=== PATIENT | female | born 1955 ===

== ENCOUNTER 2021-11-25 06:04 | Observation (INO) ==
[~2021-11-25 06:04] MED LIST: Buffered Lidocaine 1% SYRIN 1 ml INTRADERM ONE; Famotidine IV 10 MG/ML 2 ml VIAL (20 mg) IV ONE; Lactated Ringers 1000 ml BAG 1,000 ML IV SCH
[2021-11-25] MEDS ORDERED: Famotidine IV 10 MG/ML 2 ml VIAL (20 mg) ONE (06:22)
[2021-11-25] MEDS ORDERED: Lidocaine 1% w EPI 1:100,000 MDV 20 ML VIAL ONE (06:45)
[2021-11-25] MEDS ORDERED: fentaNYL 100 mcg/2 ml 50 MCG/ML VIAL ONE ×3 (07:21→11:10)
[2021-11-25] MEDS ORDERED: Midazolam 2 mg/2 ml VIAL 1 mg/ml 2 ml VIAL (2 mg) ONE ×2 (07:21→08:02)
[2021-11-25] MEDS ORDERED: Succinylcholine 200 mg VIAL 20 mg/ml 10 ml VIAL (200 mg) ONE (07:21)
[2021-11-25] MEDS ORDERED: Propofol 10 MG/ML 20 ML BTL ONE (07:21)
[2021-11-25] MEDS ORDERED: Rocuronium 50 mg VIAL 10 mg/ml 5 ml VIAL (50 mg) ONE (07:21)
[2021-11-25] MEDS ORDERED: Dexamethasone IV 4 MG/ML VIAL 1 ml VIAL ONE (07:21)
[2021-11-25] MEDS ORDERED: Lidocaine 2% PF 5 ML VIAL ONE (07:21)
[2021-11-25] MEDS ORDERED: Phenylephrine 40 mcg/mL 10mL (400mcg) SYRINGE ONE (08:17)
[2021-11-25] MEDS ORDERED: Naloxone 0.4 mg VIAL 0.4 mg/ml 1 ml VIAL IV PRN (08:50)
[2021-11-25] MEDS ORDERED: fentaNYL 100 mcg/2 ml 50 MCG/ML VIAL IV PRN (08:50)
[2021-11-25] MEDS ORDERED: Ondansetron 4 mg VIAL 2 MG/ML 2 ml VIAL IV PRN ×3 (08:50→12:46)
[2021-11-25] MEDS ORDERED: Acetaminophen IV 1 GM/100ML 1,000 MG/100 ML BAG IV ONE (09:47)
[2021-11-25] MEDS ORDERED: Ondansetron 4 mg VIAL 2 MG/ML 2 ml VIAL ONE (09:59)
[2021-11-25] MEDS ORDERED: Metoclopramide 5 MG/ML VIAL (10 mg) ONE (11:34)
[2021-11-25] MEDS ORDERED: TETRAHYDROZOLINE 0.05% EYE DROPS 15 ML BTL (NF) BOTH EYES PRN (11:45)
[2021-11-25] MEDS ORDERED: oxyCODONE 5 mg/5 ml ORAL.SOLN UDC PO PRN ×2 (11:49→12:49)
[2021-11-25] MEDS ORDERED: Ondansetron 4 mg VIAL 2 MG/ML 2 ml VIAL IM PRN (12:46)
[2021-11-25] MEDS: Calcium/Vitamin D TAB 250/125 TAB PO SCH ×3 (14:51→20:48)
[2021-11-26 05:55] LABS: ABS Lymphocytes 0.9 10^3/ul (1.0-4.8); ABS Monocytes 0.8 10^3/ul (0-0.8); ABS Neutrophils 6.2 10^3/ul (1.5-7.7); Eosinophil % 0.2 %; Hematocrit 36 % (35-47); Hemoglobin 11.5 g/dL (12.0-16.0); Lymphocyte % 11.4 %; Mean Corpuscular HGB Conc 33 g/dL (31-36); Mean Corpuscular Hemoglobin 30 pg (27-31); Mean Corpuscular Volume 93 fL (80-97); Mean Platelet Volume 8.9 fL (7.4-10.4); Platelet Count 214 10^3/uL (150-450); Red Cell Distribution Width 14 % (10-15)
[2021-11-26] MEDS: Calcium/Vitamin D TAB 250/125 TAB PO SCH ×2 (06:28→10:02)
[2021-11-26 07:50] VITALS: BP 151/85
[2021-11-26] MEDS ORDERED: Coenzyme Q10 CAP (NF) ** ENTER STREGNTH IN LABEL DIRECTIONS PO SCH (09:00)
== END 2021-11-26 12:10 | disposition home or self-care (01) ==
LOC: OR 06:04 → SSU 06:04 → SUATTDRO 12:20
PROVIDERS: ADMIT Internal Medicine; ATTEND Pediatrics